=== PATIENT | male | born 1985 | race African-American/Black ===

== ENCOUNTER 2018-02-19 18:50 | Emergency (ER) | payer OTHER ==
--- NOTE | 2018-02-19 18:55 | PDOC ---
Rapid Medical Evaluation Time Seen by Provider: 02/19/18 18:52 Medical Evaluation: Allergies Allergy/AdvReac Type Severity Reaction Status Date / Time No Known Allergies Allergy Verified 05/27/15 09:47 I have performed a brief in-person evaluation of this patient. The patient presents with a chief complaint of: tightness in left lower lumbar region x 3 days. Denies pain, stating "it's just tight". started after exercising on Thursday. Has taken no meds. Pertinent physical exam findings: Full ROM of lumbar spine. No TTP of left lumbar paravertebral muscles I have ordered the following: nothing The patient will proceed to the ED for further evaluation. Discharge Disposition - Diagnosis Back tightness - Referrals - Patient Instructions - Post Discharge Activity
[2018-02-19 18:56] VITALS: BP 143/93; PULSE 81; TEMP 98.2; BMI 27.8
[2018-02-19] MEDS ORDERED: IBUPROFEN 400 MG TABLET (FP) PO ONE ×2 (19:32→19:33)
--- NOTE | 2018-02-19 19:32 | PDOC ---
History of Present Illness - General Chief Complaint: Back Pain Stated Complaint: BACK PAIN Time Seen by Provider: 02/19/18 18:52 History Source: Patient - History of Present Illness Occurred: reports: other Severity: reports: moderate Pain Location: reports: back Past History - Past Medical History Allergies/Adverse Reactions: Allergies Allergy/AdvReac Type Severity Reaction Status Date / Time No Known Allergies Allergy Verified 02/19/18 18:52 Home Medications: Ambulatory Orders Cyclobenzaprine HCl [Flexeril -] 10 mg PO TID #9 tablet 02/19/18 Ibuprofen [Motrin -] 2 tab PO QID #28 tablet 02/19/18 COPD: No - Immunization History Td Vaccination: Yes (01/18/12) Immunization Up to Date: Yes - Suicide/Smoking/Psychosocial Hx Smoking Status: No Smoking History: Former smoker Have you smoked in the past 12 months: No Number of Cigarettes Smoked Daily: 0 Information on smoking cessation initiated: No Hx Alcohol Use: No Drug/Substance Use Hx: No Substance Use Type: None Trauma Specific PMHX - Complaint Specific PMHX Arthritis: No Back Injury: No Neck Injury: No Hx Sacro Iliac Joint Dysfunction: No Review of Systems - Review of Systems Constitutional: No: Fever ABD/GI: No: Nausea, Vomiting : No: Dysuria, Hematuria Musculoskeletal: Yes: Back Pain *Physical Exam - Vital Signs Last Vital Signs Temp Pulse Resp BP Pulse Ox 98.2 F 81 18 143/93 100 02/19/18 18:53 02/19/18 18:53 02/19/18 18:53 02/19/18 18:53 02/19/18 18:53 - Physical Exam General Appearance: Yes: Appropriately Dressed. No: Apparent Distress HEENT: positive: Normal Voice Neck: positive: Supple Gastrointestinal/Abdominal: positive: Soft. negative: Tender Musculoskeletal: negative: CVA Tenderness, Vertebral Tenderness Extremity: positive: Normal Inspection Integumentary: positive: Dry, Warm Neurologic: positive: Fully Oriented, Alert, Normal Mood/Affect Medical Decision Making - Medical Decision Making 02/19/18 19:26 32-year-old male, no significant history here with left lower back "tightness" 3 days that started after exercising in gym. Pain limited to back, does not radiate, intermittent and worse upon walking. No lower extremity sensory changes , or weakness. No fall. Patient has not taken anything for pain. No sxs, n /v/f/c. Patient well-appearing and stable with no tenderness on exam with full range of motion intact. Most likely muscular. No red flags at this time. DC with pain control as needed *DC/Admit/Observation/Transfer Diagnosis at time of Disposition: Low back pain Qualifiers: Chronicity: acute Back pain laterality: left Sciatica presence: without sciatica Qualified Code(s): M54.5 - Low back pain - Discharge Dispostion Disposition: HOME Condition at time of disposition: Good - Prescriptions Prescriptions: Cyclobenzaprine HCl [Flexeril -] 10 mg PO TID #9 tablet Ibuprofen [Motrin -] 2 tab PO QID #28 tablet - Referrals Referrals: Trell Jacobs [Primary Care Provider] - - Patient Instructions Printed Discharge Instructions: DI for Back Strain or Sprain Additional Instructions: You most likely sustained a back strain or spasm. Take medications as directed. If pain persists, follow-up with your PMD - Post Discharge Activity
[2018-02-19] MEDS ORDERED: CYCLOBENZAPRINE HCL 10 MG TABLET (FP) ONE (19:33)
[2018-02-19] MEDS ORDERED: CYCLOBENZAPRINE HCL 10 MG TABLET (FP) PO ONE (19:41)
[2018-02-20] MEDS ORDERED: CYCLOBENZAPRINE HCL 5 MG TABLET PO ONE (19:32)
== END 2018-02-19 19:41 | disposition home or self-care (01) ==
LOC: JERFT 18:50
DX: M54.5 Low back pain (principal); X50.0XXA Overexertion from strenuous movement or load, initial encounter; Y93.B9 Activity, other involving muscle strengthening exercises; Y92.39 Other specified sports and athletic area as the place of occurrence of the external cause; Y99.8 Other external cause status
CPT/HCPCS: 99281-25